=== PATIENT | male | born 1970 | race Caucasian/White ===

== ENCOUNTER 2018-10-13 05:18 | Emergency (ER) | payer MEDICARE, OTHER ==
[~2018-10-13] VITALS: Ht 170.2 cm; Wt 90.9 kg
[2018-10-13] MEDS ORDERED: RANI15TA PO (05:25)
[2018-10-13] MEDS ORDERED: ZANA4CAP PO (05:25)
[2018-10-13] MEDS ORDERED: ZOLO100T PO (05:25)
[2018-10-13] MEDS ORDERED: REQU1TAB14 PO (05:25)
[2018-10-13] MEDS ORDERED: MOBI15TA PO (05:25)
[2018-10-13] MEDS ORDERED: ADDE20CA3 PO (05:25)
[2018-10-13] MEDS ORDERED: NEUR600T PO (05:25)
[2018-10-13 06:20] LABS: BASO % 0.2 % (0.0-1.0); EOS # 0.1 10^3/uL (0.0-0.50); EOS % 0.6 % (0.0-3.0); HEMATOCRIT 37.1 % (42.0-52.0); HEMOGLOBIN 12.4 g/dl (13.5-17.5); LYMPH # 0.8 10^3/uL (1.5-4.5); LYMPH % 7.8 % (24.0-44.0); MEAN CORPUSCULAR HGB CONC 33.4 g/dl (32.0-36.5); MEAN CORPUSCULAR VOLUME 80.8 fl (80.0-96.0); MONO # 0.6 10^3/uL (0.0-0.8); MONO % 5.7 % (0.0-5.0); NEUTROPHILS # 8.7 10^3/uL (1.8-7.7); NEUTROPHILS % 84.6 % (36.0-66.0); PLATELET COUNT, AUTOMATED 157 10^3/uL (150-450); RED BLOOD COUNT 4.59 10^6/uL (4.30-6.10); WHITE BLOOD COUNT 10.3 10^3/uL (4.0-10.0)
[2018-10-13 06:44] LABS: BLOOD UREA NITROGEN 19 MG/DL (7-18); CALCIUM LEVEL 8.9 MG/DL (8.5-10.1); CARBON DIOXIDE LEVEL 25 MEQ/L (21-32); CHLORIDE LEVEL 104 MEQ/L (98-107); CK-MB VALUE MASS < 1.0 NG/ML (<3.6); CPK CREATINE PHOSPHOKINASE 93 U/L (39-308); CREATININE FOR GFR 0.93 MG/DL (0.70-1.30); GLOMERULAR FILTRATION RATE > 60.0 (>56); GLUCOSE, FASTING 126 MG/DL (70-100); MB/CK RELATIVE INDEX 1.08 (< OR =4); SODIUM LEVEL 139 MEQ/L (136-145); TROPONIN I < 0.02 NG/ML (< 0.10)
[2018-10-13] MEDS ORDERED: KETOROLAC 30 MG/ML VIAL (J1885) IV ONE (06:45)
[2018-10-13] MEDS ORDERED: ACETAMINOPHEN 325 MG TAB PO ONE (06:45)
[2018-10-13] MEDS ORDERED: NS 1,000 ML IV ONE (06:45)
[2018-10-13] MEDS ORDERED: diazePAM 5 MG TAB PO ONE (07:00)
--- NOTE | 2018-10-13 07:28 | ECGEPIP ---
Stationary ECG Study [facility] - ED Test Date: 2018-10-13 Pat Name: MARYCRUZ DEL TORO Department: Room: - Gender: M Principal Java Software Engineer: ariela : 1970 Requested By: SHAY Hernadez Order Number: [id number] Reading MD: Rachel Heller Measurements Intervals [place] Rate: 86 P: 68 FL: 158 QRS: 84 QRSD: 110 T: 59 QT: 361 QTc: 433 Interpretive Statements SINUS RHYTHM INDETERMINATE AXIS INCOMPLETE RIGHT BUNDLE BRANCH BLOCK NO PRIOR FOR COMPARISON Electronically Signed On 10-13-2018 7:28:20 EST by Rachel Heller
--- NOTE | 2018-10-13 07:35 | REPVR ---
EXAM: CT Head Without Contrast EXAM DATE/TIME: 10/13/2018 6:48 AM CLINICAL HISTORY: 48 years old, male; Injury or trauma; Fall; Initial encounter; Concussion / head injury; With loss of consciousness; Not specified; Additional info: Pain, loc S/P fall, direct trauma TECHNIQUE: Axial computed tomography images of the head/brain without contrast. All CT scans at this facility use at least one of these dose optimization techniques: automated exposure control; mA and/or kV adjustment per patient size (includes targeted exams where dose is matched to clinical indication); or iterative reconstruction. COMPARISON: No relevant prior studies available. FINDINGS: Brain: The cortical/white matter interfaces are preserved throughout the brain. There is no evidence of intracranial hemorrhage. Ventricles: The ventricular system is normal in size and configuration. Bones/joints: No acute fractures of the skull are identified. Sinuses: The visualized paranasal sinuses are clear. Mastoid air cells: The mastoid air cells are clear. Soft tissues: Mild soft tissue swelling is seen in the midline posteriorly toward the vertex. IMPRESSION: 1. No evidence of acute intracranial injury. 2. Superficial soft tissue swelling in the midline at the vertex, probably a small superficial hematoma/contusion. Electronically signed by: Lilian Arrington On 10/13/2018 07:35:11 AM
--- NOTE | 2018-10-13 07:45 | REPVR ---
EXAM: CT Cervical Spine Without Contrast EXAM DATE/TIME: 10/13/2018 6:48 AM CLINICAL HISTORY: 48 years old, male; Injury or trauma; Fall; Initial encounter; Blunt trauma; Additional info: Pain, loc S/P fall, direct trauma TECHNIQUE: Axial computed tomography images of the cervical spine without intravenous contrast. All CT scans at this facility use at least one of these dose optimization techniques: automated exposure control; mA and/or kV adjustment per patient size (includes targeted exams where dose is matched to clinical indication); or iterative reconstruction. Coronal and sagittal reformatted images were created and reviewed. COMPARISON: No relevant prior studies available. FINDINGS: Vertebrae: There is straightening of the cervical lordosis without subluxations. No definite acute fractures are identified. There is poorly defined decreased density and cortical loss anteriorly on the right side of the C2 vertebra involving the body and transverse process, probably due to a lytic osseous lesion. There is a suggestion of soft tissue extension into the right transverse foramen at C2. There is decreased density in the left side of the C5 vertebral body, likely due to a poorly defined lytic lesion. There is mild heterogeneous decreased density of the C6 vertebral body with cortical thinning in the midline posteriorly. There is a poorly defined lytic lesion in the left side of the C7 vertebral body anteriorly. Discs/Spinal canal/Neural foramina: Small endplate spurs and mild uncovertebral ridging are present at C4-C5 and C5-C6. No significant spinal canal stenosis is seen. Prevertebral Space: The prevertebral soft tissues appear normal. Soft tissues: The posterior paraspinous soft tissues appear unremarkable. Lungs: The visualized lungs are grossly clear. IMPRESSION: Multiple poorly defined areas of decreased bone density, likely lytic osseous metastases. There is associated cortical loss anteriorly on the right side of the C2 vertebral body and and possible soft tissue extension into the right transverse foramen. No acute fractures or subluxations identified. Electronically signed by: Lilian Arrington On 10/13/2018 07:45:06 AM
--- NOTE | 2018-10-13 07:57 | REPVR ---
EXAM: CT Thoracic Spine Without Contrast EXAM DATE/TIME: 10/13/2018 6:48 AM CLINICAL HISTORY: 48 years old, male; Injury or trauma; Fall; Initial encounter; Blunt trauma (contusions or hematomas); Additional info: Pain, loc S/P fall, direct trauma TECHNIQUE: Axial computed tomography images of the thoracic spine without intravenous contrast. All CT scans at this facility use at least one of these dose optimization techniques: automated exposure control; mA and/or kV adjustment per patient size (includes targeted exams where dose is matched to clinical indication); or iterative reconstruction. Coronal and sagittal reformatted images were created and reviewed. COMPARISON: No relevant prior studies available. FINDINGS: Vertebrae: There is a slight rightward convex curvature through the mid thoracic spine. Vertebral body heights are normal. There are no subluxations. Anterior endplate spurs are seen, most prominent at T8-T9 and at T10-T11. There are multiple poorly defined lytic lesions within the thoracic vertebrae, most consistent with lytic osseous metastases. Lesions are seen within the superior aspects of both the T1 and T2 vertebral bodies, with extension to the superior endplates. There is a lesion involving the center and left side of the T3 vertebral body. Additional lesions are seen in T6, T11 and T12 vertebral bodies. There appears to be involvement of the left pedicle at T11 and possibly the left pedicle at T10. Discs/Spinal canal/Neural foramina: No significant spinal canal stenosis is seen. Soft tissues: The paraspinous soft tissues appear unremarkable. Vasculature: The visualized aorta is normal in size. Lungs: A few small subpleural blebs are seen within the visualized lungs. There is a homogeneously dense nodule in the left lower lobe, measuring 7 mm which seems to be calcified. IMPRESSION: 1. Multiple poorly defined lytic lesions in the spine, most consistent with osseous metastases. No significant vertebral body height loss. No definite acute fractures identified. 2. 7 mm nodule in the visualized left lower lobe is homogeneously dense, and seems to be calcified, likely a granuloma. THIS REPORT CONTAINS FINDINGS THAT MAY BE CRITICAL TO PATIENT CARE. The findings were verbally communicated via telephone conference with KRIS CARRERO at 7:49 AM EST on 10/13/2018. The findings were acknowledged and understood. Electronically signed by: Lilian Arrington On 10/13/2018 07:56:39 AM
--- NOTE | 2018-10-13 08:04 | REPVR ---
EXAM: CT Lumbar Spine Without Contrast EXAM DATE/TIME: 10/13/2018 6:48 AM CLINICAL HISTORY: 48 years old, male; Injury or trauma; Fall; Initial encounter; Blunt trauma (contusions or hematomas); Additional info: Pain, loc S/P fall, direct trauma TECHNIQUE: Axial computed tomography images of the lumbar spine without intravenous contrast. All CT scans at this facility use at least one of these dose optimization techniques: automated exposure control; mA and/or kV adjustment per patient size (includes targeted exams where dose is matched to clinical indication); or iterative reconstruction. Coronal and sagittal reformatted images were created and reviewed. COMPARISON: MRI-Spine, L.S. without con 02/26/2015 11:58 AM FINDINGS: Vertebrae: Poorly defined lytic lesions are seen within multiple vertebrae, including the right anterior aspect of the L1 vertebral body, the mid and left posterior aspect of the L2 vertebral body, the mid and left side of the L3 vertebral body, and the left pedicle and transverse process of L5. In addition, several sclerotic lesions are seen within the visualized upper sacrum, posterior aspect of the right ilium, and in the inferior aspect of the L1 vertebral body. There is a focal discontinuity of the inferior endplate of the L2 vertebra, related to the lytic lesion. There is normal alignment of the visualized spine. Degenerative changes of the facet joints are seen at L5-S1, worse on the right side, L4-L5, and L3-L4, worse on the left side. Discs/Spinal canal/Neural foramina: No significant spinal canal stenosis is seen. Soft tissues: Unremarkable. Vasculature: The visualized aorta is normal in size. Lymph nodes: Periaortic lymphadenopathy is noted including a left aortic lymph node measuring 2.1 x 3.0 cm, and right periaortic lymph node measuring 2.4 x 3.3 cm. IMPRESSION: 1. Multiple lesions within the lumbar spine, consistent with osseous metastases. Most are predominantly lytic, including one which extends through the inferior endplate of the L2 vertebral body. Several are mildly sclerotic. 2. Normal alignment. No loss of height of the lumbar vertebrae. 3. Nonspecific periaortic retroperitoneal lymphadenopathy noted. Electronically signed by: Lilian Arrington On 10/13/2018 08:04:10 AM
--- NOTE | 2018-10-13 08:15 | REP ---
Clinical: Dizziness and fall . Comparison: None . Technique: PA and lateral. Findings: The mediastinum and cardiac silhouette are normal. The lung mendez are clear and without acute consolidation, effusion, or pneumothorax. The skeletal structures are intact and normal. Impression: 1. No acute cardiopulmonary process. Electronically Signed by John Foy MD 10/13/2018 08:07 A
[2018-10-13 09:09] LABS: ALBUMIN 3.7 GM/DL (3.2-5.2); ALT/SGPT 24 U/L (12-78); BILIRUBIN,DIRECT < 0.1 MG/DL (0.0-0.2); BILIRUBIN,TOTAL 0.3 MG/DL (0.2-1.0); LIPASE 100 U/L (73-393); TOTAL PROTEIN 7.3 GM/DL (6.4-8.2)
[2018-10-13 09:43] VITALS: BP 133/73
[2018-10-13] MEDS ORDERED: VALI5TAB PO (09:44)
[2018-10-13] MEDS ORDERED: PERC5TAB12 PO (12:40)
--- NOTE | 2018-10-13 17:30 | ED PDOC ---
Post-Departure Follow-Up odell joel and mana inman faxed formal report of ct c/t/ls spine fo rfu. pt al so sent certified letter. when he calls back please confirm new pcp and fax directly to that provider Dionte Taylor MD Oct 13, 2018 17:30
== END 2018-10-13 10:00 | disposition home or self-care (01) ==
LOC: M ED 05:18
DX: I45.19 Other right bundle-branch block (principal); G89.29 Other chronic pain; M54.9 Dorsalgia, unspecified; M54.2 Cervicalgia; C79.51 Secondary malignant neoplasm of bone; R91.1 Solitary pulmonary nodule; M79.7 Fibromyalgia; F31.9 Bipolar disorder, unspecified; Z72.0 Tobacco use; M51.9 Unspecified thoracic, thoracolumbar and lumbosacral intervertebral disc disorder; Z79.899 Other long term (current) drug therapy
CPT/HCPCS: 70450; 71046; 72125; 72128; 72131; 80048; 80076; 81001; 82550; 82553; 83690; 84484; 85025; 93005; 93041; 94760; 96361; 96374; 99285; G0103; J1885

== ENCOUNTER 2018-10-21 11:12 | Observation (INO) | payer MEDICARE, OTHER ==
[~2018-10-21] VITALS: Ht 170.2 cm; Wt 92.5 kg
[2018-10-21] MEDS: ENOXAPARIN 40 MG/0.4 ML SYRINGE (J1650) SC SCH (09:00)
[~2018-10-21 11:12] MED LIST: ADDE20CA3 PO; MOBI15TA PO; NEUR600T PO; PERC5TAB12 PO; RANI15TA PO; REQU1TAB14 PO; VALI5TAB PO; ZANA4CAP PO; ZOLO100T PO
[2018-10-21] MEDS ORDERED: MORPHINE 4 MG/ML 1ML VIAL/SYRINGE (J2270) IV ONE (11:45)
[2018-10-21 12:11] LABS: HEMATOCRIT 39.6 % (42.0-52.0); HEMOGLOBIN 12.9 g/dl (13.5-17.5); MEAN CORPUSCULAR HEMOGLOBIN 26.7 pg (27.0-33.0); MEAN CORPUSCULAR HGB CONC 32.6 g/dl (32.0-36.5); PLATELET COUNT, AUTOMATED 172 10^3/uL (150-450); RED BLOOD COUNT 4.83 10^6/uL (4.30-6.10); WHITE BLOOD COUNT 9.5 10^3/uL (4.0-10.0)
[2018-10-21] MEDS ORDERED: OXYC15TA76 PO (12:13)
[2018-10-21] MEDS ORDERED: OXYC-403 PO (12:13)
[2018-10-21] MEDS ORDERED: TRAM50TA2 PO (12:13)
[2018-10-21 12:44] LABS: ALBUMIN 3.9 GM/DL (3.2-5.2); ALT/SGPT 82 U/L (12-78); BILIRUBIN,TOTAL 0.3 MG/DL (0.2-1.0); BLOOD UREA NITROGEN 24 MG/DL (7-18); CALCIUM LEVEL 9.3 MG/DL (8.5-10.1); CARBON DIOXIDE LEVEL 25 MEQ/L (21-32); CHLORIDE LEVEL 99 MEQ/L (98-107); CREATININE FOR GFR 0.86 MG/DL (0.70-1.30); GLOMERULAR FILTRATION RATE > 60.0 (>56); GLUCOSE, FASTING 136 MG/DL (70-100); POTASSIUM SERUM 3.9 MEQ/L (3.5-5.1); SODIUM LEVEL 133 MEQ/L (136-145); TOTAL PROTEIN 7.6 GM/DL (6.4-8.2)
[2018-10-21] MEDS ORDERED: BISACODYL 5 MG TAB PO PRN (14:15)
[2018-10-21] MEDS ORDERED: ONDANSETRON 4 MG TAB (S0181) PO PRN (14:15)
[2018-10-21] MEDS ORDERED: BISACODYL 10 MG SUPP PR PRN (14:15)
[2018-10-21] MEDS ORDERED: GABA800T4 PO (14:19)
[2018-10-21] MEDS ORDERED: IBUPOTC PO (14:19)
[2018-10-21] MEDS ORDERED: VITA500046 PO (14:19)
[2018-10-21] MEDS ORDERED: LIDO5TD TOP (14:19)
[2018-10-21] MEDS ORDERED: SERT50TA PO (14:19)
[2018-10-21] MEDS ORDERED: VITMTA PO (14:19)
[2018-10-21] MEDS ORDERED: MORPHINE 30 MG TAB **MSIR PO PRN ×2 (15:00→21:00)
[2018-10-21] MEDS ORDERED: PILL CRUSHER/CUTTER 1 EACH XX PRN (15:30)
--- NOTE | 2018-10-21 16:00 | HPEPDOC ---
[facility] Medical History & Physical Date of Admission Oct 21, 2018 Primary Care Physician: A Other Provider DR. ORLANDO History and Physical CHIEF COMPLAINT: [intractable back pain 2/2 mets of unknown cancer ] HISTORY OF PRESENT ILLNESS: This is a 48 yo male with pmhx of chronic fatigue syndrome and htn ( labile per patient so he takes bp meds occasionally) who presented to the ED for intractable back pain. Patient was seen in the Ed on October 13 for intractable back pain as well and was dx with lytic mets of unknown source . He was give po pain meds prescription and dc to f/u with pmd and pain mgt clinic. He said the medicine has not helped much and ran out of medicine today and so he spoke to his pmd who told him to come to the ED. He has a pain mgt apt scheduled for tomorrow, but there is concern that he might not be able to make it there due to the weather which is expected to be snow storm//winter advisory. He said his PSA level is wnl and he is being evaluated for multiple myeloma outpt. He said since his symptoms worsened in August 2018 he has been bedbound due to the pain. The intensity of the pain is ">10/10" at its worst per pt. He also complained of chills, but denied fever, chest pain, sob, confusion, headache or dizziness. PAST MEDICAL HISTORY: chronic pain bone lytic mets chronic fatigue syndrome PAST SURGICAL HISTORY: minor suture, no real surgeries SOCIAL HISTORY: Marital status: [yes ]. 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 IV drug use: [denied ] FAMILY HISTORY: Father: [pancreatic ca and cva] paternal grandmother - pancreatic ca Mother: [bladder cancer and heart disease ] Siblings: [brother - rectal tumor/cancer ] ALLERGIES: Please see below. HOME MEDICATIONS: Please see below. LABORATORY DATA: See below. IMAGING: [ CT C spine - on 10/13/2018 IMPRESSION: Multiple poorly defined areas of decreased bone density, likely lytic osseous metastases. There is associated cortical loss anteriorly on the right side of the C2 vertebral body and and possible soft tissue extension into the right transverse foramen. No acute fractures or subluxations identified. CT brain (after a fall) 10/13/18 IMPRESSION: 1. No evidence of acute intracranial injury. 2. Superficial soft tissue swelling in the midline at the vertex, probably a small superficial hematoma/contusion. Ct L spine IMPRESSION: 1. Multiple lesions within the lumbar spine, consistent with osseous metastases. Most are predominantly lytic, including one which extends through the inferior endplate of the L2 vertebral body. Several are mildly sclerotic. 2. Normal alignment. No loss of height of the lumbar vertebrae. 3. Nonspecific periaortic retroperitoneal lymphadenopathy noted. CT of the T spine IMPRESSION: 1. Multiple poorly defined lytic lesions in the spine, most consistent with osseous metastases. No significant vertebral body height loss. No definite acute fractures identified. 2. 7 mm nodule in the visualized left lower lobe is homogeneously dense, and seems to be calcified, likely a granuloma. MICROBIOLOGY: Please see below. ASSESSMENT: lytic bone mets with chronic intractable pain htn . PLAN: c/w prn pain meds - adjust according to pain pain mgt consult not listed today - pls f/u and call if needed tomorrow bowel regimen c/w home meds sertraline, ranitidine and gabapentin dvt ppx - lovenox full code , from home , no svc Vital Signs Vital Signs Date Time Temp Pulse Resp B/P (MAP) Pulse Ox O2 Delivery O2 Flow Rate FiO2 10/21/18 15:00 98.8 94 17 135/69 (91) 96 Room Air Laboratory Data Labs 24H Laboratory Tests 2 10/21/18 11:58: Nucleated Red Blood Cells % (auto) 0.0, Anion Gap 9, Glomerular Filtration Rate > 60.0, Blood Urea Nitrogen 24H, Creatinine 0.86, Sodium Level 133L, Potassium Level 3.9, Chloride Level 99, Carbon Dioxide Level 25, Calcium Level 9.3, Aspa rtate Amino Transf (AST/SGOT) 89H, Alanine Aminotransferase (ALT/SGPT) 82H, Alkaline Phosphatase 426H, Total Bilirubin 0.3, Total Protein 7.6, Albumin 3.9, Albumin/Globulin Ratio 1.05 CBC/BMP Laboratory Tests 10/21/18 11:58 Red Blood Count 4.83, Mean Corpuscular Volume 82.0, Mean Corpuscular Hemoglobin 26.7 L, Mean Corpuscular Hemoglobin Concent 32.6, Red Cell Distribution Width 13.7, Calcium Level 9.3, Aspartate Amino Transf (AST/SGOT) 89 H, Alanine Aminotransferase (ALT/SGPT) 82 H, Alkaline Phosphatase 426 H, Total Bilirubin 0.3, Total Protein 7.6, Albumin 3.9 Home Medications Scheduled (Requip) 0.25 Mg Tab, 0.75 MG PO QHS Amphetamine/Dextroamphetamine (Adderall Xr 20 mg) 1 Cap Cap, 20 MG PO DAILY Cholecalciferol (Vitamin D) 5,000 Unit Tab, 5,000 UNIT PO QHS Gabapentin (Gabapentin) 800 Mg Tab, 800 MG PO TID Multivitamins *[facility] STOCKED* (Thera M Plus *[facility] STOCKED*) 1 Tab Tab, 1 TAB PO QHS Ranitidine Hcl (Zantac) 150 Mg Tab, 1 TAB PO DAILY Sertraline Hcl (Sertraline HCl) 50 Mg Tab, 50 MG PO QHS Scheduled PRN Ibuprofen (Ibuprofen) 200 Mg Tab, 200 MG PO QID PRN for PAIN Lidocaine (Lidocaine) 5 % Pad, 2 PATCH TOP DAILY PRN for PAIN APPLY ONE PATCH TO EACH SIDE OF LOWER LUMBAR Allergies Coded Allergies: No Known Allergies (Unverified , 10/13/18) SARITHA LAWRENCE MD Oct 21, 2018 16:00
[2018-10-21 16:30] VITALS: BP 133/64
[2018-10-21] MEDS: GABAPENTIN 400 MG CAP PO SCH ×2 (18:14→20:08)
[2018-10-21] MEDS: oxyCODONE 5MG TAB PO PRN (18:15)
--- NOTE | 2018-10-21 19:14 | REP ---
Right knee five views : There is no fracture or dislocation. Mineralization and joint spaces are normal. There are no calcifications or foreign bodies. Impression: Negative right knee. Left knee five views : There is no fracture or dislocation. Mineralization and joint spaces are normal. There are no calcifications or foreign bodies. Impression: Negative left knee . Electronically Signed by Arturo Russell MD 10/21/2018 07:06 P
[2018-10-21] MEDS: MULTIVITAMINS/MINERALS THERAP 1 TAB PO SCH (20:08)
[2018-10-21] MEDS: VITAMIN D 1,000 INTERNATIONAL UNITS TABLET PO SCH (20:08)
[2018-10-21] MEDS: SENOKOT S TAB PO SCH (20:08)
[2018-10-21] MEDS: oxyCODONE 15 MG CR TAB PO SCH (20:09)
[2018-10-21] MEDS: SERTRALINE HCL 50 MG TAB PO SCH (20:09)
[2018-10-21 22:00] VITALS: BP 125/80
[2018-10-22] MEDS: oxyCODONE 5MG TAB PO PRN ×4 (00:20→23:46)
[2018-10-22] MEDS: traMADol 50 MG TAB PO PRN ×3 (02:58→18:33)
[2018-10-22] MEDS: ACETAMINOPHEN TAB 650MG DOSE (2X325MG) PO PRN ×3 (02:58→18:34)
[2018-10-22 06:00] VITALS: BP 130/63
[2018-10-22 06:38] LABS: BASO # 0.1 10^3/uL (0.0-0.2); BASO % 0.5 % (0.0-1.0); EOS % 0.3 % (0.0-3.0); HEMATOCRIT 37.4 % (42.0-52.0); HEMOGLOBIN 12.3 g/dl (13.5-17.5); LYMPH # 1.1 10^3/uL (1.5-4.5); LYMPH % 11.6 % (24.0-44.0); MEAN CORPUSCULAR HGB CONC 32.9 g/dl (32.0-36.5); MEAN CORPUSCULAR VOLUME 82.2 fl (80.0-96.0); MONO # 0.6 10^3/uL (0.0-0.8); NEUTROPHILS # 7.4 10^3/uL (1.8-7.7); NEUTROPHILS % 80.4 % (36.0-66.0); PLATELET COUNT, AUTOMATED 171 10^3/uL (150-450); RED BLOOD COUNT 4.55 10^6/uL (4.30-6.10); WHITE BLOOD COUNT 9.2 10^3/uL (4.0-10.0)
[2018-10-22 07:05] LABS: BLOOD UREA NITROGEN 19 MG/DL (7-18); CALCIUM LEVEL 9.4 MG/DL (8.5-10.1); CARBON DIOXIDE LEVEL 27 MEQ/L (21-32); CHLORIDE LEVEL 100 MEQ/L (98-107); CREATININE FOR GFR 0.84 MG/DL (0.70-1.30); GLOMERULAR FILTRATION RATE > 60.0 (>56); GLUCOSE, FASTING 97 MG/DL (70-100); MAGNESIUM LEVEL 2.1 MG/DL (1.8-2.4); SODIUM LEVEL 134 MEQ/L (136-145)
[2018-10-22] MEDS: AMPHETAMINE/DEXTROAMPHETAMINE 5 MG *ER* CAPSULE (ADDERALL XR) PO SCH (08:00)
[2018-10-22 09:20] LABS: C REACTIVE PROTEIN QUANTITATIV 4.27 MG/DL (0.00-0.30); LDH LACTATE DEHYDROGENASE 1376 U/L (87-241)
[2018-10-22] MEDS: SENOKOT S TAB PO SCH ×2 (09:29→20:07)
[2018-10-22] MEDS: oxyCODONE 15 MG CR TAB PO SCH ×2 (09:29→20:08)
[2018-10-22] MEDS: GABAPENTIN 400 MG CAP PO SCH ×3 (09:29→20:07)
[2018-10-22] MEDS: FAMOTIDINE 20 MG TAB PO SCH (09:30)
[2018-10-22] MEDS: ENOXAPARIN 40 MG/0.4 ML SYRINGE (J1650) SC SCH (09:32)
[2018-10-22 09:51] LABS: TOTAL PROTEIN 7.6 GM/DL (6.4-8.2)
--- NOTE | 2018-10-22 13:40 | REP ---
Skeletal survey: Comparisons are the CT studies of the cervical spine, thoracic spine and lumbar spine dated 10/13/2018. Calvarium AP and lateral views: There are no lytic, blastic or destructive changes on plain films. Cervical spine AP and lateral views: There are no lytic, blastic or destructive skeletal changes. The findings are better appreciated on the comparison CT. There is a degenerative calcification in the ligamentum nuchae. Thoracic spine AP and lateral views: There are no lytic, blastic or destructive changes. These findings are better appreciated on the comparison CT. Lumbar spine AP and lateral views: There are no lytic, blastic or destructive changes on plain films. These findings are better appreciated on the comparison CT. Bilateral humeri: There are no lytic, blastic or destructive skeletal changes on plain films. AP pelvis: There are no lytic, blastic or destructive skeletal changes on plain films. There are calcifications in the pelvis, likely phleboliths. Bilateral femurs, AP views: There are no lytic, blastic or destructive skeletal changes. Impression: There are no lytic, blastic or destructive skeletal changes on plain films. The findings in the spine are better appreciated on the comparison CT studies. Consider follow-up radionuclide PET scan and radionuclide bone scan. Electronically Signed by Arturo Russell MD 10/22/2018 01:32 P
[2018-10-22 13:56] LABS: ALBUMIN 4.11 GM/DL (3.29-5.55); ALBUMIN % 54.1 % (55.8-66.1); ALPHA-1-GLOBULINS 0.53 GM/DL (0.17-0.41); ALPHA-2-GLOBULINS 0.95 GM/DL (0.42-0.99); ALPHA-2-GLOBULINS % 12.5 % (7.1-11.8); BETA-1-GLOBULINS 0.44 GM/DL (0.28-0.60); BETA-1-GLOBULINS % 5.8 % (4.7-7.2); BETA-2-GLOBULINS 0.36 GM/DL (0.19-0.55)
[2018-10-22 13:57] LABS: BETA-2-GLOBULINS % 4.8 % (3.2-6.5); GAMMA GLOBULIN % 15.8 % (11.1-18.8)
[2018-10-22 14:00] VITALS: BP 115/58
[2018-10-22 16:03] LABS: URINE TOTAL PROTEIN 39.2 MG/DL (0-12)
--- NOTE | 2018-10-22 16:06 | IPNPDOC ---
Text Note Date of Service The patient was seen on 10/22/18. NOTE Subjective: Patient was seen and examined at the bedside. Patient notes that his pain is still uncontrolled. He denies any nausea, vomiting, abdominal pain, consti pation, diarrhea, discomfort with urination. Denies chest pain, shortness breath or palpitations. Notes that he can walk around without any difficulty but still expresses severe pain. Objective: Vitals (See below) General: Lying in bed, reporting pain, AAOx3 HEENT: NC, AT CVS: RRR, +S1S2 Lungs: Fair air entry b/l, -w/r/r Abdomen: Soft, ND, NT Extremities: - Edema, - Calf tenderness Neuro: 5/5 strength at upper / lower extremities bilaterally Assessment and plan: Intractable back pain on Chronic back pain - likely 2/2 lytic bone lesions - Patient presented to emergency room with complaints of worsening back pain - He was sent to the emergency room by his primary care provider - Physical does not reveal any focal neurologic deficits - Extensive imaging completed in emergency room was consistent with diffuse metastatic osseous lytic lesions - Patient has been on pain control here; with some improvement - Consult with pain management Osseous metastatic lytic lesions - likely 2/2 malignancy - possibly 2/2 multiple myeloma, unlikely 2/2 Prostate CA - Patient noted that he is being worked up for this as an outpatient - No neurologic deficits is not experiencing confusion - Lab work does not reveal any acute kidney injury or hypercalcemia - PSA level was noted within normal limits on 10/13/2018 - Workup for multiple myeloma has been sent - Patient has appointment to see Dr. rosie Devries on October 30; confirmed appointment with discussion with Dr. El - Discussed with oncology, Dr. El; advised workup to be completed including bone survey Chronic fatigue syndrome - c/w Adderall Depression - c/w Sertraline Vitamin D deficiency - c/w supplementation GERD - c/w Famotidine DVT prophylaxis - c/w Lovenox VS,Fishbone, I+O VS, Fishbone, I+O Laboratory Tests 10/22/18 06:24 Red Blood Count 4.55, Mean Corpuscular Volume 82.2, Mean Corpuscular Hemoglobin 27.0, Mean Corpuscular Hemoglobin Concent 32.9, Red Cell Distribution Width 14.0, Neutrophils (%) (Auto) 80.4 H, Lymphocytes (%) (Auto) 11.6 L, Monocytes (%) (Auto) 6.0 H, Eosinophils (%) (Auto) 0.3, Basophils (%) (Auto) 0.5, Neutrophils # (Auto) 7.4, Lymphocytes # (Auto) 1.1 L, Monocytes # (Auto) 0.6, Eosinophils # (Auto) 0.0, Basophils # (Auto) 0.1, Calcium Level 9.4 Vital Signs Date Time Temp Pulse Resp B/P (MAP) Pulse Ox O2 Delivery O2 Flow Rate FiO2 10/22/18 12:44 18 10/22/18 06:00 97.6 79 130/63 (85) 96 10/21/18 15:00 Room Air I&O- Last 24 Hours up to 6 AM 10/22/18 06:00 Intake Total 720 ml Output Total 0 ml Balance 720 ml TREMAINE DE JESUS MD Oct 22, 2018 16:06
--- NOTE | 2018-10-22 16:20 | CR ---
DATE OF CONSULTATION: 08/21/2019 CHIEF COMPLAINT: Intractable back pain. CONSULTATION REPORT FOR: Dr. Velez HISTORY OF PRESENT ILLNESS: We were asked to see this patient by Dr. Velez today due to uncontrolled back pain. Upon entry to the room, the patient is sitting with a bag next to him and states that he is waiting to leave. States he is supposed to have a meeting with the doctors. I told him I was here to help with recommendations for changes in his pain medicine to get him more comfortable. He seemed to be very dismissive of any of our efforts. States that he does not understand what is going on here. States he will be leaving. I did get a chance to look over his current narcotic internet system for tracking over-prescribing (I-STOP) record. It shows that he is getting very small amounts of hydrocodone as needed as an outpatient over the past three or four months. Currently receiving OxyContin 15 mg twice a day. He felt as though he did not need to ask for pain medicine and therefore, he did not understand why he was not getting his pain medication. He has oxycodone 10 mg on order, of which I have asked the nurses to give him, although the patient says he did not ask for it so he may be refusing this. He seems very angry. May want to consider using OxyContin 15 mg three times daily as an outpatient on a scheduled basis. May use oxycodone 10 mg every six hours as needed for breakthrough pain.
[2018-10-22] MEDS: MULTIVITAMINS/MINERALS THERAP 1 TAB PO SCH (20:07)
[2018-10-22] MEDS: SERTRALINE HCL 50 MG TAB PO SCH (20:08)
[2018-10-22] MEDS: VITAMIN D 1,000 INTERNATIONAL UNITS TABLET PO SCH (20:08)
[2018-10-22 22:00] VITALS: BP 146/82
[2018-10-23] MEDS: ACETAMINOPHEN TAB 650MG DOSE (2X325MG) PO PRN ×2 (03:55→10:54)
[2018-10-23] MEDS: traMADol 50 MG TAB PO PRN ×2 (03:55→10:54)
[2018-10-23 06:00] VITALS: BP 132/66
[2018-10-23 06:34] LABS: BASO % 0.4 % (0.0-1.0); EOS # 0.1 10^3/uL (0.0-0.50); EOS % 0.6 % (0.0-3.0); HEMOGLOBIN 11.7 g/dl (13.5-17.5); LYMPH % 10.3 % (24.0-44.0); MEAN CORPUSCULAR HEMOGLOBIN 27.6 pg (27.0-33.0); MEAN CORPUSCULAR HGB CONC 33.4 g/dl (32.0-36.5); MEAN CORPUSCULAR VOLUME 82.5 fl (80.0-96.0); MONO # 0.6 10^3/uL (0.0-0.8); MONO % 5.8 % (0.0-5.0); NEUTROPHILS # 7.8 10^3/uL (1.8-7.7); PLATELET COUNT, AUTOMATED 156 10^3/uL (150-450); RED BLOOD COUNT 4.24 10^6/uL (4.30-6.10); WHITE BLOOD COUNT 9.5 10^3/uL (4.0-10.0)
[2018-10-23] MEDS: oxyCODONE 5MG TAB PO PRN (06:41)
[2018-10-23 06:51] LABS: BLOOD UREA NITROGEN 23 MG/DL (7-18); CALCIUM LEVEL 9.3 MG/DL (8.5-10.1); CARBON DIOXIDE LEVEL 30 MEQ/L (21-32); CHLORIDE LEVEL 100 MEQ/L (98-107); CREATININE FOR GFR 0.87 MG/DL (0.70-1.30); GLOMERULAR FILTRATION RATE > 60.0 (>56); GLUCOSE, FASTING 102 MG/DL (70-100); POTASSIUM SERUM 4.2 MEQ/L (3.5-5.1); SODIUM LEVEL 136 MEQ/L (136-145)
[2018-10-23] MEDS ORDERED: OXYC10TA12 PO (08:31)
[2018-10-23] MEDS ORDERED: OXYC15TA66 PO (08:31)
[2018-10-23] MEDS: AMPHETAMINE/DEXTROAMPHETAMINE 5 MG *ER* CAPSULE (ADDERALL XR) PO SCH (08:34)
[2018-10-23] MEDS ORDERED: oxyCODONE 15 MG CR TAB PO SCH (09:00)
[2018-10-23] MEDS: GABAPENTIN 400 MG CAP PO SCH (09:33)
[2018-10-23] MEDS: FAMOTIDINE 20 MG TAB PO SCH (09:34)
[2018-10-23] MEDS: ENOXAPARIN 40 MG/0.4 ML SYRINGE (J1650) SC SCH (09:34)
[2018-10-23] MEDS: SENOKOT S TAB PO SCH (09:34)
--- NOTE | 2018-10-23 14:01 | DS.PDOC ---
Discharge Summary General Date of Admission Oct 21, 2018 at 14:14 Date of Discharge 10/23/2018 Discharge Summary PROCEDURES PERFORMED DURING STAY: [None]. 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 Patient is indicated that he was being worked up for his back pain as an outpatient. Patient recently had imaging completed that revealed several osseous metastatic lesions in his vertebrae. Patient had a PSA level that was checked that was within normal limits and he was currently being worked up for multiple myeloma. Is scheduled to have an outpatient PET scan on Wednesday 10/25. Will be seeing Dr. rosie Devries on October 30. Indicated. The main reason he is come to the emergency room is because his back pain is out of control. He was admitted this hospitalist service for further evaluation and treatment. 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 The findings in the spine are better appreciated on the comparison CT studies. Consider follow-up radionuclide PET scan and radionuclide bone scan. - Workup for multiple myeloma has been sent - partially complete; will follow with Dr. rosie Devries on October 30 for results Chronic fatigue syndrome - c/w Adderall Depression - c/w Sertraline Vitamin D deficiency - c/w supplementation GERD - c/w Famotidine DVT prophylaxis - c/w Lovenox DISCHARGE MEDICATIONS: Please see below. ALLERGIES: Please see below. PHYSICAL EXAMINATION ON DISCHARGE: Vitals (See below) General: Lying in bed, reporting pain, AAOx3 HEENT: NC, AT CVS: RRR, +S1S2 Lungs: Fair air entry b/l, -w/r/r Abdomen: Soft, ND, NT Extremities: - Edema, - Calf tenderness Neuro: 5/5 strength at upper / lower extremities bilaterally LABORATORY DATA: Please see below. ACTIVITY: [As tolerated]. DISCHARGE PLAN: Follow up with Dr. Cyn Beyer and Dr. Devries within 7 days Remain complaint with treatment plan and medications Return to the ER if you experience any problems DISPOSITION: Home, Self-Care. DISCHARGE CONDITION: [Stable]. TIME SPENT ON DISCHARGE: Greater than [35] minutes. Vital Signs/I&Os Vital Signs Date Time Temp Pulse Resp B/P (MAP) Pulse Ox O2 Delivery O2 Flow Rate FiO2 10/23/18 11:24 16 10/23/18 06:00 96.9 87 132/66 (88) 96 10/21/18 15:00 Room Air I&O- Last 24 Hours up to 6 AM 10/23/18 06:00 Intake Total 1555 ml Output Total 175 ml Balance 1380 ml Laboratory Data Labs 24H Laboratory Tests 2 10/23/18 06:14: Immature Granulocyte % (Auto) 0.9, White Blood Count 9.5, Red Blood Count 4.24L, Hemoglobin 11.7L, Hematocrit 35.0L, Mean Corpuscular Volume 82.5, Mean Corpuscular Hemoglobin 27.6, Mean Corpuscular Hemoglobin Concent 33.4, Red Cell Distribution Width 14.0, Platelet Count 156, Neutrophils (%) (Auto) 82.0H, Lymphocytes (%) (Auto) 10.3L, Monocytes (%) (Auto) 5.8H, Eosinophils (%) (Auto) 0.6, Basophils (%) (Auto) 0.4, Neutrophils # (Auto) 7.8H, Lymphocytes # (Auto) 1.0L, Monocytes # (Auto) 0.6, Eosinophils # (Auto) 0.1, Basophils # (Auto) 0.0, Nucleated Red Blood Cells % (auto) 0.0, Anion Gap 6L, Glomerular Filtration Rate > 60.0, Blood Urea Nitrogen 23H, Creatinine 0.87, Sodium Level 136, Potassium Level 4.2, Chloride Level 100, Carbon Dioxide Level 30, Calcium Level 9.3, Magnesium Level 2.0 CBC/BMP Laboratory Tests 10/23/18 06:14 Red Blood Count 4.24 L, Mean Corpuscular Volume 82.5, Mean Corpuscular Hemoglobin 27.6, Mean Corpuscular Hemoglobin Concent 33.4, Red Cell Distribution Width 14.0, Neutrophils (%) (Auto) 82.0 H, Lymphocytes (%) (Auto) 10.3 L, Monocytes (%) (Auto) 5.8 H, Eosinophils (%) (Auto) 0.6, Basophils (%) (Auto) 0.4, Neutrophils # (Auto) 7.8 H, Lymphocytes # (Auto) 1.0 L, Monocytes # (Auto) 0.6, Eosinophils # (Auto) 0.1, Basophils # (Auto) 0.0, Calcium Level 9.3 Discharge Medications Scheduled (Requip) 0.25 Mg Tab, 0.75 MG PO QHS, (Reported) Amphetamine/Dextroamphetamine (Adderall Xr 20 mg) 1 Cap Cap, 20 MG PO DAILY, (Reported) Cholecalciferol (Vitamin D) 5,000 Unit Tab, 5,000 UNIT PO QHS, (Reported) Gabapentin (Gabapentin) 800 Mg Tab, 800 MG PO TID, (Reported) Multivitamins *[facility] STOCKED* (Thera M Plus *[facility] STOCKED*) 1 Tab Tab, 1 TAB PO QHS, (Reported) Oxycodone HCl (Oxycontin) 15 Mg Tab, 15 MG PO TID Ranitidine Hcl (Zantac) 150 Mg Tab, 1 TAB PO DAILY, (Reported) Sertraline Hcl (Sertraline HCl) 50 Mg Tab, 50 MG PO QHS, (Reported) Scheduled PRN Lidocaine (Lidocaine) 5 % Pad, 2 PATCH TOP DAILY PRN for PAIN, (Reported) APPLY ONE PATCH TO EACH SIDE OF LOWER LUMBAR Oxycodone HCl (Oxycodone HCl) 10 Mg Tab, 10 MG PO QIDP PRN for pain Allergies Coded Allergies: No Known Allergies (Unverified , 10/13/18) TREMAINE DE JESUS MD Oct 23, 2018 14:01
[2018-10-24 10:57] LABS: FREE KAPPA LIGHT CHAINS SERUM 32.9 mg/L (3.3-19.4); FREE LAMBDA LIGHT CHAINS SERUM 26.5 mg/L (5.7-26.3); KAPPA/LAMBDA RATIO SERUM 1.24 (0.26-1.65)
[2018-10-24 10:57] LABS: FREE LAMBDA LIGHT CHAINS URINE 6.62 mg/L (0.24-6.66); KAPPA/LAMBDA RATIO URINE 23.41 (2.04-10.37)
[2018-10-24 15:25] LABS: UPEP INTERPRETATION NO M-SPIKE NOTED
== END 2018-10-23 11:30 | disposition home or self-care (01) ==
LOC: M ED 11:12 → M ED INP 14:14 → M MS5PR 16:23
PROVIDERS: ADMIT Internal Medicine; ATTEND Internal Medicine
DX: C79.51 Secondary malignant neoplasm of bone (principal); G89.29 Other chronic pain; R53.82 Chronic fatigue, unspecified; R91.1 Solitary pulmonary nodule; F32.9 Major depressive disorder, single episode, unspecified; E53.8 Deficiency of other specified B group vitamins; K21.9 Gastro-esophageal reflux disease without esophagitis; Z79.01 Long term (current) use of anticoagulants; I10 Essential (primary) hypertension; Z79.899 Other long term (current) drug therapy; F17.210 Nicotine dependence, cigarettes, uncomplicated
CPT/HCPCS: 36415; 73564; 77075; 80048; 80053; 82232; 83615; 83735; 83883; 84165; 84166; 85025; 85027; 86140; 86335; 96372; 96374; 99284; G0378; J1650; J2270

== ENCOUNTER → 2018-11-01 | Outpatient (CLI) | payer MEDICARE, OTHER ==
[~2018-11-01] MED LIST changes: +ACE65ERTAB PO; +GABA800T4 PO; +IBUPOTC PO; +LIDO5TD TOP; +OXYC-403 PO; +OXYC10TA12 PO; +OXYC15TA66 PO; +OXYC15TA76 PO; +SERT50TA PO; +TRAM50TA2 PO; +VITA500046 PO; +VITMTA PO
--- NOTE | 2018-11-01 22:52 | ECHO ---
DATE OF PROCEDURE: 11/01/2018 DATE OF : 1970 AGE: 48 REFERRING PROVIDER: Dr. Gen El PATIENT LOCATION: Outpatient. REASON FOR THE ECHOCARDIOGRAM: Right atrial mass. 2D MEASUREMENTS: IVS: 1.1 LV: 4.7 LVPW: 1.1 LA: 2.9 Aorta: 3.5 DOPPLER MEASUREMENTS: Peak velocity across the aortic valve: 1.2 m/s Peak velocity across the LVOT: 0.84 m/s Mitral E: 0.69, Mitral A: 0.70 with a ratio of 1.0. 2D COMMENTS: 1. Technically limited study due to poor acoustic window. 2. The left ventricular size is normal, as well as left ventricular wall thickness and systolic function. The estimated global left ventricular systolic ejection fraction is 65-70%. 3. Normal left atrium. The right atrium appeared to be normal in size as well as the right ventricle. There was an echogenic structure noted in the right atrium above the septal leaflet of the tricuspid valve in limited views. It was seen in some of the apical four-chamber views. Not seen in the subcostal views. It is about 1.2 x 2.4 cm. 4. The atrial septum seems to be normal without evidence of defect. There was increased mobility of the atrial septum noted in limited views. 5. Normal aortic root. 6. No pericardial effusion seen. 7. The aortic valve, mitral valve, and tricuspid valve appear to be normal. The pulmonic valve and proximal pulmonary artery branches were not well visualized. 8. The inferior vena cava, CVP appeared to be normal in size. DOPPLER: No significant valvular abnormalities detected. Assessment of the left ventricular diastolic function seems to be normal. IMPRESSION: 1. Normal global left ventricular systolic and diastolic function. 2. Possible atrial mass noted in limited views. I recommend a transesophageal echocardiogram for further evaluation or a cardiac MRI. 3. No significant valvular abnormalities detected.
== END ==
LOC: M CARPUL 15:23
PROVIDERS: ATTEND Internal Medicine Hematology & Oncology
DX: C79.89 Secondary malignant neoplasm of other specified sites (principal)